=== PATIENT | female | born 1975 | race Caucasian/White ===

== ENCOUNTER → 2016-09-05 | Outpatient (CLI) | payer BC ==
[~2016-09-05] MED LIST: BACLOFEN10 MG PO; CIPRO PO; NORCO1 TAB 10/3 PO; PAXIL10 MG PO; PYRIDIUM PO; TYLENOL #3 PO
--- NOTE | ~2016-09-05 | US128 ---
[id number] [address] [address] [id number] O MR#: [id number] Acc #: [id number] NAME: CHRIS MONROE : 1975 SEX: F STUDY DATE/TIME: 09/05/2016 9:24 UNIT: [facility] ROOM: STUDY DESCRIPTION: Thyroid Attending Physician: Rajinder Cash M.D. Referring Physician: Rajinder Cash M.D. Ordering Physician: Rajinder Cash M.D. Primary Care Physician: Zuleima Toscano A.P.R.N. MEDICAL IMAGING REPORT This report is preliminary unless electronic signature is present. EXAM Thyroid ultrasound INDICATIONS Thyroid nodule. Patient was initially noted to have a thyroid nodule in the inferior pole of the left lobe of the thyroid gland in February 2015. TECHNIQUE Jorge-scale and color Doppler sonographic images were obtained through the thyroid gland. FINDINGS The thyroid gland is somewhat small in size, right lobe measures 2.8 x 1.6 x 1.5 cm, left lobe measures 2.8 x 1.3 x 1.1 cm. Isthmus measures about 2 mm in thickness. No nodules are identified on the right and thyroid parenchyma actually appears fairly homogeneous. Within the left lobe of the thyroid gland, there is a hypoechoic area which measures 1.1 x 0.6 x 0.6 cm. This is located within the inferior pole of the left lobe of the thyroid gland and has been unchanged since February 2015. It is favored to be benign. IMPRESSION 1. Patient has a hypoechoic nodule within the inferior pole of the left lobe of the thyroid gland which has been stable since February 2015. It is favored to be benign. Follow up ultrasound in February 2017 is suggested to document a full 2 years of stability. No new nodules are seen. Dictated by... Erlinda Cohen M.D. THIS IS AN ELECTRONICALLY VERIFIED REPORT Erlinda Cohen M.D. at 09/06/2016 5:59 PM AFF/psc TD: 09/05/2016 20:41 JOB #: [id number] MEDICAL IMAGING REPORT Page 1 of 1
== END | disposition home or self-care (01) ==
LOC: SGUS 08:57
DX: E04.1 Nontoxic single thyroid nodule (principal)
CPT/HCPCS: 76536